=== PATIENT | female | born 1980 | race Caucasian/White ===

== ENCOUNTER 2023-07-08 14:57 | Outpatient (OUT) | payer BC, SELFPAY ==
--- NOTE | 2023-07-08 15:14 | US_ITS ---
The [address] [address] Patient Name: VIRIDIANA KAISER MRN: [id number] date: 1980 Sex: F Assigned Patient Location: US Current Patient Location: US Accession/Order Number: [id number] Exam Date: 07/08/2023 15:18 Report Date: 07/08/2023 15:57 At the request of: BOB VENEGAS Procedure: US appendix EXAM: US appendix HISTORY: Right lower quadrant abdominal pain COMPARISON: None. TECHNIQUE: Grayscale and color ultrasound FINDINGS: Right lower quadrant ultrasound in the region of the patient's pain demonstrates normal skin, subcutaneous fat, muscle and intraperitoneal structures. No ascites. The appendix is not visualized US/US appendix IMPRESSION: Nonvisualization of the appendix Electronically authenticated by: KIKE PURCELL Date: 07/08/2023 15:57
== END 2023-07-08 14:58 | disposition home or self-care (01) ==
LOC: US 15:00
PROVIDERS: PCP Family Medicine; Visit Provider Family Medicine
DX: R10.31 Right lower quadrant pain (principal)
CPT/HCPCS: 76705

== ENCOUNTER 2023-07-20 08:45 | Outpatient (OUT) | payer BC, SELFPAY ==
--- NOTE | 2023-07-20 10:12 | CT_ITS ---
[address] [address] Patient Name: VIRIDIANA KAISER MRN: [id number] date: 1980 Sex: F Assigned Patient Location: CT Current Patient Location: CT Accession/Order Number: [id number] Exam Date: 07/20/2023 09:58 Report Date: 07/20/2023 13:23 At the request of: BOB VENEGAS Procedure: CT abdomen pelvis w con EXAMINATION: CT abdomen pelvis w con HISTORY: Right Lower Abdominal Pain , periumbilical pain intermittently for 2 weeks, nausea, diarrhea COMPARISON: No relevant comparison available. TECHNIQUE: Axial, Coronal, and Sagittal images were obtained without and/or with IV contrast as indicated by examination type. Dose reduction techniques were achieved by using automated exposure control and/or adjustment of mA and/or kV according to patient size and/or use of iterative reconstruction technique. FINDINGS: LUNG BASES: No visible pulmonary or pleural disease. LIVER: No enlargement, atrophy, suspicious density, or significant focal lesion. BILIARY: No dilatation or calcification. PANCREAS: No lesion, fluid collection, or abnormal duct dilatation. SPLEEN: No enlargement or focal lesion. ADRENALS: No mass or enlargement. KIDNEYS: No mass, obstruction, or calcification. BOWEL/MESENTERY: Diverticulosis of descending and sigmoid colon without acute inflammatory changes. No visible mass, obstruction, or bowel wall thickening. Normal appendix. AORTA/VASCULAR: No aneurysm or dissection. RETROPERITONEUM: No mass or adenopathy. LYMPH NODES: No adenopathy. URINARY BLADDER: No visible focal wall thickening, lesion, or calculus. PELVIC ORGANS: Collapsing follicle within right ovary. IUD within endometrial cavity. No visible mass. Pelvic organs appropriate for patient age. ABDOMINAL WALL: 6.0 cm fat filled umbilical hernia without strangulation. BONES: Scoliotic curvature thoracic and lumbar spine. No fracture. OTHER: Negative. CT/CT abdomen pelvis w con IMPRESSION: 1. Large umbilical hernia containing only fat. No appreciable strangulation. 2. Collapsing follicle within right ovary of questionable clinical significance. 3. Sigmoid diverticulosis. No acute or suspicious findings of the bowel. Electronically authenticated by: HAILEY MORGAN Date: 07/20/2023 13:23
== END 2023-07-20 08:46 | disposition home or self-care (01) ==
LOC: CT 08:45
PROVIDERS: PCP Family Medicine; Visit Provider Family Medicine
DX: R10.31 Right lower quadrant pain (principal); K42.9 Umbilical hernia without obstruction or gangrene; K57.90 Diverticulosis of intestine, part unspecified, without perforation or abscess without bleeding
CPT/HCPCS: 74177; Q9967